=== PATIENT | female | born 1975 | race Caucasian/White ===

== ENCOUNTER 2016-12-21 14:51 | Emergency (ER) | payer OTHER ==
--- NOTE | ~2016-12-21 | CT71 ---
[facility] A Service of [facility] RADIOLOGY TEXT RESULTS PATIENT: SABIHA MONTERROSO LOCATION: [facility] : 71 UNIT #: [id number] AGE: [address]: Monica Gamboa MD SEX: F ORDER DR: [id number] [facility] [address] [place], [place] [address] [id number] MR#: [id number] #: [id number] NAME: SABIHA MONTERROSO : 1975 SEX: F STUDY DATE/TIME: 12/21/2016 15:58 UNIT: [facility] ROOM: STUDY DESCRIPTION: CT Head Wo Contrast Attending Physician: Monica Gamboa M.D. Referring Physician: Primary Care Physician No Ordering Physician: Jorge A Hidalgo M.D. Primary Care Physician: Primary Care Physician No MEDICAL IMAGING REPORT This report is preliminary unless electronic signature is present EXAM CT brain without contrast HISTORY Headache since yesterday TECHNIQUE/COMPARISON CT brain without contrast is compared to CT 11/23/2014. This CT exam was performed with one or more of the following radiation dose reduction techniques: automatic exposure control, adjustment of mA and/or kV according to patient size, and iterative reconstruction. FINDINGS Stable curvilinear intermediate density structure extending from the right of midline in the prepontine cistern to the midline in the suprasellar cistern, unchanged compared to the prior exam. This could be a vascular structure. Consider further evaluation with MRI and MRA of the brain. No intracranial hemorrhage. No midline shift or ventricular dilatation. No focal atrophy or extraaxial fluid collection. Small metal screws in the right and left lateral frontal skull, lateral right parietal and superior left parietal skull. These are chronic and stable. IMPRESSION 1. Stable curvilinear structure in the prepontine and suprasellar cisterns, unchanged compared to 11/23/2012. The appearance raises suspicion of a vascular malformation. This could be further evaluated with MRI and MRA brain if not already performed elsewhere. 2. No intracranial hemorrhage or edema. Dictated by... Gato Michelle M.D. [facility] A Service of [facility] RADIOLOGY TEXT RESULTS PATIENT: SABIHA MONTERROSO LOCATION: [facility] : 71 UNIT #: [id number] AGE: [address]: Monica Gamboa MD SEX: F ORDER DR: THIS IS AN ELECTRONICALLY VERIFIED REPORT Gato Michelle M.D. at 12/21/2016 10:53 PM DFL/to TD: 12/21/2016 18:42 JOB #: [id number] MEDICAL IMAGING REPORT Page 1 of 1 COPY
[~2016-12-21 14:51] MED LIST: ADVIL PO; ADVIL200 M1 PO; ALBUTEROL17 G1 IH; ALBUTEROL17 GM INH; AMOXICILLIN PO; ATARAX PO; BACTRIM DS TABL1 TA1 PO; CIPRO PO; CIPRO250 MG PO; CLARITIN D PO; DESYREL100 MG PO; DETROL LA2 MG PO; DIAZEPAM; DIAZEPAM PO; DOLOBID PO; FLAGYL PO; FLEXERIL10 MG PO; FLONASE16 GM; IBUPROFEN PO; IBUPROFEN600 MG PO; IBUPROFEN800 MG PO; LORTAB 5/500 TA1 TA1 PO; LORTAB 7.5-5001 TAB; LORTAB 7.5-5001 TAB PO; LORTAB 7.51 TAB 7.5/ PO; LORTAB 7.51 TAB PO; MOTRIN PO; MOTRIN600 M1 PO; MOTRIN600 MG PO; NIZORAL120 ML TP; PERCOCET 51 UDTAB 5/ PO; PERCOCET5/325 PO; PHENERGAN DM1 ML PO; PHENERGAN PO; PHENERGAN25 MG PO; PREDNISONE PO; TRAZODONE; TRAZODONE PO; TYLENOL PM EX-1 EAC1 PO; TYLOX1 CAP 5/50 PO; VALIUM10 MG PO; VIBRAMYCIN100 M1 PO; VICODIN; VICODIN 5/500 T1 TAB PO; VICODIN PO; VOLTAREN75 MG PO; ZITHROMAX PO
== END 2016-12-21 19:35 | disposition home or self-care (01) ==
LOC: CED 14:51
DX: R51 Headache (principal); Z88.0 Allergy status to penicillin; Z91.041 Radiographic dye allergy status; Z91.040 Latex allergy status
CPT/HCPCS: 70450; 99284; J1885